=== PATIENT | female | born 1955 ===

== ENCOUNTER 2020-12-15 08:23 | Outpatient (CLI) | payer OTHER ==
[2021-01-06] MEDS ORDERED: ANTI-GAS166 MG PO (12:08)
== END 2020-12-15 08:33 | disposition home or self-care (01) ==
LOC: MRI 08:23
PROVIDERS: ATTEND Internal Medicine Gastroenterology
DX: K57.30 Diverticulosis of large intestine without perforation or abscess without bleeding (principal); D37.4 Neoplasm of uncertain behavior of colon; K64.8 Other hemorrhoids; K64.0 First degree hemorrhoids; K56.600 Partial intestinal obstruction, unspecified as to cause; C18.6 Malignant neoplasm of descending colon; D50.9 Iron deficiency anemia, unspecified
CPT/HCPCS: 72197; 74183; A9575

== ENCOUNTER 2020-12-23 10:15 | Inpatient (IN) | payer OTHER ==
[~2020-12-23] VITALS: Ht 160 cm; Wt 65.3 kg
[2020-12-23] MEDS ORDERED: SYNTHROID88 MCG PO ×2 (13:36→13:38)
[2020-12-23] MEDS ORDERED: IRON PO (13:37)
[2020-12-23] MEDS ORDERED: ALENDRONATE SOD70 MG PO (13:37)
[2020-12-23] MEDS ORDERED: [UNRECOGNIZED DRUG - OTHER] PO (13:38)
[2020-12-28] MEDS ORDERED: OMEPRAZOLE20 MG (08:18)
[2020-12-28] MEDS ORDERED: ATORVASTATIN CA40 MG (08:18)
[2020-12-28] MEDS ORDERED: AMLODIPINE BESY10 MG (08:18)
[2020-12-28] MEDS ORDERED: IRON236 MG (08:19)
[2020-12-31] MEDS ORDERED: INTEGRA F CAPS1 EACH PO (18:52)
[2021-01-04] MEDS ORDERED: PERCOCET 5-3251 EACH PO (08:07)
[2021-01-04] MEDS ORDERED: INTESTINEX680 M1 PO (08:07)
[2021-01-04] MEDS ORDERED: QUESTRAN PACKET4 GM PO (08:07)
[2021-01-06] MEDS ORDERED: ANTI-GAS166 MG PO (12:08)
== END 2021-01-04 19:58 | disposition home or self-care (01) | DRG 330 ==
LOC: SURH 12-28 06:00 → O/R 12-28 06:00 → SURH 12-28 10:15
PROVIDERS: ADMIT Surgery; ATTEND Surgery
PROC: 07TD4ZZ Resection of Aortic Lymphatic, Percutaneous Endoscopic Approach (ICD-10-PCS; 2020-12-28)
PROC: 3E0F7SF Introduction of Other Gas into Respiratory Tract, Via Natural or Artificial Opening (ICD-10-PCS; 2020-12-28)
PROC: 0DTF4ZZ Resection of Right Large Intestine, Percutaneous Endoscopic Approach (ICD-10-PCS; principal; 2020-12-28 08:01)
DX: C18.4 Malignant neoplasm of transverse colon (principal); C78.7 Secondary malignant neoplasm of liver and intrahepatic bile duct; I10 Essential (primary) hypertension; R19.7 Diarrhea, unspecified; D64.9 Anemia, unspecified; E03.8 Other specified hypothyroidism; R59.0 Localized enlarged lymph nodes; Z20.822 Contact with and (suspected) exposure to COVID-19

== ENCOUNTER 2020-12-24 07:09 | Outpatient (CLI) | payer OTHER ==
[~2020-12-24 07:09] MED LIST: ALENDRONATE SOD70 MG PO; IRON PO; SYNTHROID88 MCG PO; [UNRECOGNIZED DRUG - OTHER] PO
[2021-01-06] MEDS ORDERED: ANTI-GAS166 MG PO (12:08)
== END 2020-12-24 07:17 | disposition home or self-care (01) ==
LOC: NUCLEAR 07:09
DX: C18.6 Malignant neoplasm of descending colon (principal); D37.4 Neoplasm of uncertain behavior of colon; K57.30 Diverticulosis of large intestine without perforation or abscess without bleeding; K64.8 Other hemorrhoids; K64.0 First degree hemorrhoids; K56.600 Partial intestinal obstruction, unspecified as to cause; D50.9 Iron deficiency anemia, unspecified
CPT/HCPCS: 78816; A9552